=== PATIENT | male | born 1995 | race Caucasian/White ===

== ENCOUNTER 2019-12-02 15:12 | Emergency (ER) | payer MEDICAID ==
[~2019-12-02] VITALS: Ht 170.2 cm; Wt 72.7 kg
[2019-12-02 15:50] VITALS: BP 136/84
== END 2019-12-02 16:06 | disposition home or self-care (01) ==
LOC: EMS 15:15
DX: S41.011D Laceration without foreign body of right shoulder, subsequent encounter (principal); F12.90 Cannabis use, unspecified, uncomplicated; F19.90 Other psychoactive substance use, unspecified, uncomplicated; F17.210 Nicotine dependence, cigarettes, uncomplicated; X58.XXXD Exposure to other specified factors, subsequent encounter
CPT/HCPCS: 99406

== ENCOUNTER 2021-06-09 19:41 | Emergency (ER) | payer OTHER ==
[~2021-06-09] VITALS: Ht 170.2 cm; Wt 72.7 kg
[2021-06-09] MEDS ORDERED: SODIUM CHLORIDE 0.9% 1,000 ML IV ONE (20:30)
[2021-06-09 22:01] VITALS: BP 119/72
== END 2021-06-09 23:36 | disposition left against medical advice (07) ==
LOC: EMS 19:43
DX: R45.1 Restlessness and agitation (principal); R40.0 Somnolence; F17.210 Nicotine dependence, cigarettes, uncomplicated; F11.90 Opioid use, unspecified, uncomplicated; F12.90 Cannabis use, unspecified, uncomplicated
CPT/HCPCS: 71045; 93005; 99283; J7030

== ENCOUNTER 2021-06-10 02:33 | Inpatient (IN) | payer MEDICAID, OTHER ==
[~2021-06-10] VITALS: Ht 165.1 cm; Wt 72.6 kg
[2021-06-10 03:28] LABS: BASOPHILS % (AUTO) 0.3 % (0.0-2.0); EOSINOPHILS % (AUTO) 0.9 % (1.0-6.0); HEMATOCRIT 36.6 % (41-53); HEMOGLOBIN 12.5 g/dL (13.5-17.5); LYMPHOCYTES % (AUTO) 19.6 % (22.0-44.0); MEAN CORPUSCULAR HEMOGLOBIN 27.7 pg (26.0-34.0); MEAN CORPUSCULAR HGB CONC 34.3 G/dL (31.0-37.0); MEAN CORPUSCULAR VOLUME 81 fL (80-100); MONOCYTES # (AUTO) 0.2 K/uL (0.1-1.0); MONOCYTES % (AUTO) 4.2 % (2.0-9.0); PLATELET COUNT (AUTO) 244 K/uL (150-450); RED BLOOD CELL COUNT(AUTO) 4.52 MIL/uL (4.50-5.90)
[2021-06-10] MEDS ORDERED: HALOPERIDOL 5 MG TABLET PO PRN (03:30)
[2021-06-10] MEDS ORDERED: ZOLPIDEM TARTRATE 10 MG TABLET PO PRN (03:30)
[2021-06-10 03:35] LABS: ANION GAP 7 mmol/L (8-16); CARBON DIOXIDE 26 mmol/L (22-29); CHLORIDE 104 mmol/L (98-107); CREATININE 0.48 mg/dL (0.60-1.30); GLOMERULAR FILTR. RATE CALC > 60 mL/min (>60); GLUCOSE,RANDOM 101 mg/dL (70-110); POTASSIUM 3.3 mmol/L (3.5-5.1); SODIUM SERUM 137 mmol/L (136-145); UREA NITROGEN, BLOOD 13 mg/dL (7-18)
[2021-06-10 03:41] LABS: ALANINE AMINOTRANSFERASE 42 U/L (12-78); ALBUMIN 3.8 g/dL (3.4-5.0); ALKALINE PHOSPHATASE 48 U/L (46-116); ASPARTATE AMINOTRANSFERASE 23 U/L (15-37); BILIRUBIN,TOTAL 0.5 mg/dL (0.1-1.0); TOTAL PROTEIN, SERUM 7.5 g/dL (6.4-8.2)
[2021-06-10 04:05] LABS: COVID AG,FIA SOURCE NASOPHARYNGEAL
[2021-06-10 05:40] VITALS: BP 114/69
[2021-06-10] MEDS ORDERED: BENZOCAINE/MENTHOL LOZENGE PO PRN (06:15)
[2021-06-10] MEDS ORDERED: CloNIDine HCL 0.1 MG TABLET PO PRN (06:15)
[2021-06-10] MEDS ORDERED: POTASSIUM CHLORIDE 20 MEQ ER TABLET PO ONE (06:15)
[2021-06-10] MEDS ORDERED: MAGNESIUM HYDROXIDE SUSPENSION 30 ML UDCUP PO PRN (06:15)
[2021-06-10] MEDS ORDERED: IBUPROFEN 600 MG TABLET PO PRN (06:15)
[2021-06-10] MEDS ORDERED: ALBUTEROL SULFATE HFA 90 MCG/PUFF 8 GM INHALER IH PRN (06:15)
[2021-06-10] MEDS ORDERED: OMEPRAZOLE 20 MG CAPSULE PO PRN (06:15)
[2021-06-10] MEDS ORDERED: ONDANSETRON HCL 4 MG TABLET PO PRN (06:15)
[2021-06-10] MEDS ORDERED: ACETAMINOPHEN 325 MG TABLET PO PRN (06:15)
[2021-06-10] MEDS ORDERED: BACITRACIN 28 GM OINTMENT TP PRN (06:15)
[2021-06-10] MEDS ORDERED: LOPERAMIDE HCL 2 MG CAPSULE PO PRN (06:15)
[2021-06-10] MEDS ORDERED: MAG HYDROX/AL HYDROX/SIMETH ES 30 ML SUSPENSION UDCUP PO PRN (06:15)
[2021-06-10] MEDS ORDERED: DOCUSATE SODIUM 100 MG CAPSULE PO PRN (06:15)
[2021-06-10] MEDS ORDERED: PETROLATUM,WHITE 28 GM JELLY TP PRN (06:15)
[2021-06-10 16:00] VITALS: BP 93/56
[2021-06-11 07:08] VITALS: BP 110/72
[2021-06-11 08:27] LABS: AMPHET/METH SCREEN,URINE POSITIVE (NEGATIVE); BARBITURATE SCREEN, URINE NEGATIVE (NEGATIVE); BENZODIAZEPINES SCREEN,URINE NEGATIVE (NEGATIVE); CANNABINOID SCREEN,URINE NEGATIVE (NEGATIVE); COCAINE SCREEN,URINE NEGATIVE (NEGATIVE); METHADONE SCREEN, URINE NEGATIVE (NEGATIVE); OPIATE SCREEN,URINE NEGATIVE (NEGATIVE)
[2021-06-11 08:28] LABS: PHENCYCLIDINE SCREEN,URINE NEGATIVE (NEGATIVE)
[2021-06-11] MEDS: RisperiDONE 1 MG TABLET PO SCH ×2 (09:00→17:20)
[2021-06-11 12:40] LABS: CHOL/HDL RATIO 2.1 (4.2-7.3); POTASSIUM 3.6 mmol/L (3.5-5.1)
[2021-06-11 16:45] VITALS: BP 100/62
[2021-06-12 08:00] VITALS: BP 109/65
[2021-06-12] MEDS: RisperiDONE 1 MG TABLET PO SCH ×2 (09:22→16:33)
[2021-06-12] MEDS: LORazepam 2 MG TABLET PO PRN (15:05)
[2021-06-12 16:58] VITALS: BP 139/83
[2021-06-13] MEDS: RisperiDONE 1 MG TABLET PO SCH ×2 (08:08→16:48)
[2021-06-13 08:28] VITALS: BP 155/108
[2021-06-13] MEDS: LORazepam 2 MG TABLET PO PRN (13:48)
[2021-06-13] MEDS ORDERED: DiphenhydrAMINE HCL 50 MG/ML VIAL IVP ONE (14:15)
[2021-06-13] MEDS: DiphenhydrAMINE HCL 50 MG/ML VIAL IM ONE ×2 (14:43→14:53)
[2021-06-13 14:44] VITALS: BP 94/53
[2021-06-13 16:09] VITALS: BP 110/63
[2021-06-14 06:02] VITALS: BP 112/70
[2021-06-14] MEDS: RisperiDONE 1 MG TABLET PO SCH (07:46)
[2021-06-14 08:44] VITALS: BP 121/75
[2021-06-14 10:21] LABS: % IRON SATURATION 30.8 % (30-44)
[2021-06-14] MEDS ORDERED: RISP0.5T39 PO (10:43)
== END 2021-06-14 12:00 | disposition home or self-care (01) | DRG 750 ==
LOC: EMS 02:34 → 3EI 03:27
PROVIDERS: ADMIT Psychiatry & Neurology Psychiatry; ATTEND Psychiatry & Neurology Psychiatry
DX: F25.9 Schizoaffective disorder, unspecified (principal); Z59.0 Homelessness; B18.2 Chronic viral hepatitis C; E87.6 Hypokalemia; F12.90 Cannabis use, unspecified, uncomplicated; F41.9 Anxiety disorder, unspecified; G47.00 Insomnia, unspecified; K59.00 Constipation, unspecified; F11.90 Opioid use, unspecified, uncomplicated; F15.10 Other stimulant abuse, uncomplicated; Z20.822 Contact with and (suspected) exposure to COVID-19; Z87.891 Personal history of nicotine dependence
CPT/HCPCS: 80053; 80061; 83540; 83550; 84132; 85025; 99285; G0480; J1200; Q0162